=== PATIENT | female | born 1960 | race Caucasian/White ===

== ENCOUNTER 2017-01-08 21:46 | Inpatient (IN) | payer SELFPAY ==
[~2017-01-08 21:46] MED LIST: ISOVUE-370 76%-LOCM 1 ML ONE
--- NOTE | 2017-01-08 22:21 | RAD ---
CHEST 1 VIEW: Date: 01/08/17 HISTORY: Chest pain. COMPARISON: Chest 1 view dated 02/03/16. FINDINGS: New right infrahilar air space opacity is present. Left lung is relatively clear. IMPRESSION: New right infrahilar air space opacity suggests pneumonia. Follow-up recommended after treatment. POS: [facility]
[2017-01-08 22:40] LABS: #Basophils 0.1 thou/uL (0.0-0.2); #Lymphocytes 2.6 thou/uL (1.20-3.40); #Monocytes 0.9 thou/uL (0.11-0.59); #Neutrophils 15.4 thou/uL (1.40-6.50); %Basophils 0.7 % (0.0-1.0); %Eosinophils 0.1 % (0.0-10.0); %Lymphocytes 13.7 % (21.0-51.0); %Monocytes 4.5 % (0.0-10.0); Hematocrit 40.6 % (36.0-47.0); Mean Platelet Volume 6.4 fL (7.4-10.4); Red Blood Cell (RBC) Count 4.23 mill/uL (4.20-5.40)
[2017-01-08] MEDS ORDERED: HYDROmorphone 0.5 MG/0.5 ML SYRINGE ONE (22:45)
[2017-01-08 23:01] LABS: ALT (SGPT) 20 U/L (8-55); AST (SGOT) 23 U/L (5-34); Alkaline Phosphatase 130 U/L (40-150); Anion Gap 18 mmol/L (10-20); BUN (Urea Nitrogen) 10 mg/dL (9.8-20.1); Bilirubin, Total 0.6 mg/dL (0.2-1.2); CK (CPK) 102 U/L (29-168); Calc. Creatinine Clearance 0 mL/min (70-130); Calcium 9.6 mg/dL (7.8-10.44); Carbon Dioxide 20 mmol/L (22-29); Chloride 100 mmol/L (98-107); Estimated GFR-MDRD 78; Lipase 19 U/L (8-78); Protein, Total 8.2 g/dL (6.0-8.3)
[2017-01-08 23:05] LABS: Troponin I Less than 0.010 ng/mL (< 0.028)
[2017-01-08 23:17] LABS: Lactic Acid - Sepsis 2.3 mmol/L (0.5-2.2)
--- NOTE | 2017-01-08 23:22 | CT ---
CT ANGIOGRAM CHEST AND ABDOMEN WITH CONTRAST: Date: 01/08/17 HISTORY: Dissection. This is an aortic dissection protocol. COMPARISON: Chest radiograph from same date. FINDINGS: CT angiogram of the chest and abdomen performed after the intravenous administration of contrast. 3D rendering is provided. Thoracic aorta is normal. Ascending aorta is normal. Great vessels are normal. No aortic dissection. No aneurysmal dilatation. There is air space consolidation within the right middle lobe and right lower lobe which is multifoca l. This does abut the hemidiaphragm. Left lung is relatively clear. No pericardial effusion. Normal volume pericardial fluid. The superior mesenteric artery and celiac trunk are both patent. Liver is unremarkable, as well as spleen, adrenal glands, pancreas, and kidneys. Skeleton is unremarkable. IMPRESSION: 1. Multifocal right middle and lower lobe pneumonia. Follow up after treatment recommended. 2. No aortic dissection. POS: [facility]
[2017-01-08] MEDS ORDERED: methylPREDNISolone Sod Succ/PF 125 MG/2 ML VIAL ONE (23:54)
[2017-01-09] MEDS ORDERED: Lorazepam 2 MG/ML VIAL ONE (00:16)
[2017-01-09] MEDS ORDERED: Acetaminophen 500 MG TAB ONE (00:34)
--- NOTE | 2017-01-09 01:36 | PDOC.EVN ---
Event Note - Event Note Event Note: [id number] H&P Dictated 1. Pneumonia 2. Acute copd exacerbation 3. htn plan: see orders
[2017-01-09] MEDS ORDERED: Albuterol Sulfate 2.5 mg/3 ml Neb NEB PRN (01:46)
[2017-01-09 02:11] LABS: Bilirubin Negative (Negative); Blood, Urine Negative (Negative); Glucose, Urine (Dipstick) Negative (Negative); Ketone, Urine Negative (Negative); Nitrite Positive (Negative); Protein, Urine (Dipstick) Negative (Neg-Trace); Urobilinogen 0.2 mg/dL (0.2-1.0)
[2017-01-09 02:13] LABS: Bacteria/HPF 1+ HPF (None Seen); Hyaline Casts/LPF 0-3 HYALINE CAST LPF (0-3 Hyaline); Squamous Epithelial 0-3 HPF (0-3); WBC/HPF 0-3 HPF (0-3)
[2017-01-09 02:41] LABS: #Lymphocytes 1.3 thou/uL (1.20-3.40); #Monocytes 0.7 thou/uL (0.11-0.59); #Neutrophils 15.8 thou/uL (1.40-6.50); %Basophils 0.2 % (0.0-1.0); %Eosinophils 0.1 % (0.0-10.0); %Lymphocytes 7.2 % (21.0-51.0); %Monocytes 3.7 % (0.0-10.0); Hematocrit 34.2 % (36.0-47.0); Mean Platelet Volume 6.3 fL (7.4-10.4); Red Blood Cell (RBC) Count 3.61 mill/uL (4.20-5.40); White Blood Cell (WBC) Count 17.8 thou/uL (4.8-10.8)
[2017-01-09 03:01] LABS: Anion Gap 15 mmol/L (10-20); BUN (Urea Nitrogen) 9 mg/dL (9.8-20.1); Calc. Creatinine Clearance 0 mL/min (70-130); Calcium 8.2 mg/dL (7.8-10.44); Carbon Dioxide 16 mmol/L (22-29); Chloride 105 mmol/L (98-107); Estimated GFR-MDRD 78
[2017-01-09 03:12] LABS: Troponin I Less than 0.010 ng/mL (< 0.028)
[2017-01-09] MEDS ORDERED: Azithromycin 500 MG in Sodium Chloride 0.9% 250 ML 250 ML IVPB SCH ×2 (04:00→06:00)
[2017-01-09] MEDS ORDERED: Fentanyl 100 MCG/2 ML VIAL ONE (04:22)
[2017-01-09 07:21] VITALS: BMI 28.5
[2017-01-09 08:40] LABS: Lactic Acid - Sepsis 2.9 mmol/L (0.5-2.2)
--- NOTE | 2017-01-09 09:04 | HP ---
DATE OF ADMISSION: 01/09/2017 CHIEF COMPLAINT: Fever, chills, cough, sputum production. HISTORY OF PRESENT ILLNESS: Patient is a 56-year-old female with past medical history of COPD, hyper tension, hyperlipidemia who came to the ER complaining of cough and sputum production. Patient state s she had a cold 1 week back since then she is having cough, cough with sputum production, sputum is green in color, started having chest congestion. She started having fever and chills also, started h aving diffuse body aches. She came to the ER, complaints of dyspnea. Patient tried for relief but it did not help her. The patient complains of chest pain from the cough all over the chest, int ermittent, spasm kind. No aggravating and no alleviating factors. Worsens with cough. Denies nause a, denies vomiting. PAST MEDICAL HISTORY: As per HPI. PAST SURGICAL HISTORY: Hysterectomy, tubal ligation, knee surgery, . SOCIAL HISTORY: Positive for smoking, denies alcohol, denies drugs. FAMILY HISTORY: Positive for heart problems. REVIEW OF SYSTEMS: Constitutional: Denies any fever, denies any chill. Eyes: Denies any vision pr oblems. . Cardiovascular system: Positive for chest pain. Respiratory system: Positive for dyspnea. Positive for cough and sputum production. Gastrointestin al: Denies nausea, vomiting. Integumentary: Denies any rash. Musculoskeletal: Denies any joint d eformities. All other review of systems are reviewed and are negative. PHYSICAL EXAMINATION: CONSTITUTIONAL/VITAL SIGNS: At the time of H&P performed, pulse ox 99%, heart rate 110, blood pressu re 126/60. GENERAL: The patient appears tired. Anterior nares patent. HEENT: Nose normal. Ears normal. Teeth intact. Tongue is moist. NECK: Supple. No JVD. CARDIOVASCULAR SYSTEM: S1, S2 present. Tachycardia. No murmurs, no rubs, no gallops. RESPIRATORY SYSTEM: Positive for wheezing. Positive for rhonchi, diminished breath sounds bilateral ly. GASTROINTESTINAL: Abdomen is soft, nontender, no guarding, no organomegaly, no masses felt. MUSCULOSKELETAL: No edema. CRANIAL NERVE SYSTEM: Cranial nerves intact. Follows commands. Strength intact, Sensory intact. PSYCHIATRIC: Mood appropriate at this time. INTEGUMENT: No rashes seen. LABORATORY DATA: At the time of H&P performed, white count 19, hemoglobin 14.1, platelet count is 38 0. BMP showed sodium 134, potassium 3.6, chloride 100, CO2 of 20, BUN 10, creatinine 0.7. D-dimer [address] chest showed multifocal right middle and lower lobe pneumonia. ASSESSMENT AND PLAN: The patient is a 56-year-old female: 1. Right side pneumonia. Plan to start patient on IV antibiotics. Plan to monitor the patient clos vonda. Plan to check flu test. Plan to check Legionella, Streptococcus pneumonia, urinary antigen. W e will monitor patient closely. 2. Acute chronic obstructive pulmonary disease exacerbation. Plan to start patient on breathing chacho atments. Plan to start the patient on IV steroids and will monitor closely. 3. History of hypertension, monitor blood pressures. Continue BP meds. 4. History of hyperlipidemia. Continue statin. Case was discussed in detail with the patient.
[2017-01-09] MEDS: Aspirin 325 MG TAB PO SCH (09:06)
[2017-01-09] MEDS: Lisinopril 10 MG TAB PO SCH (09:07)
[2017-01-09] MEDS ORDERED: HYDROcodone/Acetaminophen 5/325 mg Tablet PO PRN (10:21)
[2017-01-09 10:27] LABS: Troponin I Less than 0.010 ng/mL (< 0.028)
[2017-01-09] MEDS: Potassium Chloride 20 MEQ TAB PO SCH ×3 (11:06→22:02)
[2017-01-09] MEDS: HYDROcodone/Acetaminophen 10/325 mg Tablet PO PRN ×2 (11:06→22:03)
[2017-01-09] MEDS: Guaifenesin DM 100-10/5 ML UDCUP PO PRN ×2 (12:30→22:03)
--- NOTE | 2017-01-09 12:58 | CON ---
DATE OF CONSULTATION: 01/09/2017 CONSULTING PHYSICIAN: Hospitalist group. REASON FOR CONSULTATION: COPD exacerbation. HISTORY OF PRESENT ILLNESS: This is a 56-year-old female who came to the hospital yesterday with one week history of increasing shortness of breath and sputum production. She is a 1 pack per day smoke r. She says she is trying to cut down. She does have a diagnosis of COPD from the past. She has been producing green sputum. She denies any hemoptysis. She has been having fever and chill s. PAST MEDICAL HISTORY: COPD, fibromyalgia, hypertension, and hyperlipidemia. PAST SURGICAL HISTORY: Hysterectomy, tubal ligation, knee surgery, section. SOCIAL HISTORY: Has been up to 3-pack per day smoker in the past and has smoked since age 16 and is now down to 1 pack per day. Does not consume alcohol. Denies illicit drugs. FAMILY MEDICAL HISTORY: Remarkable for coronary disease and COPD. MEDICATIONS: Prior to admission, trazodone, buspirone, Lyrica, Zestril and Abilify. She has also go t an albuterol/ipratropium nebulizer mix that she takes at home. REVIEW OF SYSTEMS: She has had fever and chills. She has had no nausea or vomiting. She has had no hemoptysis, no hematemesis, melena, hematochezia, hematuria, or dysuria. PHYSICAL EXAMINATION: VITAL SIGNS: Temperature is 99.4, pulse 82, respirations 16, O2 sat 93%, blood pressure 117/58. GENERAL: She is awake and alert and in no acute discomfort. She is tachypneic and is somewhat anxio us. HEENT: Unremarkable. NECK: No adenopathy, no JVD, no bruits. LUNGS: Poor air movement, but no audible wheezing or rhonchi. CARDIAC: S1, S2 regular, without murmur, rub or gallop. ABDOMEN: Soft, nontender, nondistended. EXTREMITIES: No clubbing, cyanosis, or edema. LABORATORY DATA: White blood cell count 17.8, hematocrit 34.2, platelet count 359. Sodium 133, pota ssium 3.1, chloride 105, CO2 16, BUN 9, creatinine 0.7, glucose 193. CT of the chest showed relative ly clear lung [place] except in the right lower lobe where there are some patchy infiltration. ASSESSMENT: 1. Right lower lobe pneumonia. 2. Chronic obstructive pulmonary disease with exacerbation. 3. Tobacco abuse. RECOMMENDATIONS: 1. I would continue treating her with Levaquin as you are doing. She is PENICILLIN allergic. There fore, PENICILLIN, CEPHALOSPORINS should probably be avoided. 2. Scheduled nebulization treatments 3. IV steroids. 4. Smoking cessation. 5. She is requesting some cough medicine, which I will write for her. Thank you for the consultation. I will be glad to follow with you.
--- NOTE | 2017-01-09 14:30 | PDOC.EVN ---
Event Note - Event Note Event Note: history reviewed, orders reviewed. Pt admitted for multilobar pneumonia, severe sepsis with elevated lactate. State don levoflox and azithro. History of PCN allergy - rash. Will add in cefepime for GNR coverage for HCAP, low risk of cross reaction. I think benefit outweighs risk.
[2017-01-09] MEDS: Cefepime 1 GM, Admixture Fee 1 EACH in Sterile Water 10 ML SLOW IVP SCH (16:20)
[2017-01-09] MEDS ORDERED: Cefepime 1 GM in Sodium Chloride 0.9% 100 ML IVPB SCH (21:00)
[2017-01-10] MEDS: HYDROcodone/Acetaminophen 10/325 mg Tablet PO PRN ×4 (02:41→20:30)
[2017-01-10] MEDS: Cefepime 1 GM, Admixture Fee 1 EACH in Sterile Water 10 ML SLOW IVP SCH ×2 (02:42→17:09)
[2017-01-10 04:52] LABS: #Lymphocytes 1.4 thou/uL (1.20-3.40); #Monocytes 0.9 thou/uL (0.11-0.59); #Neutrophils 16.3 thou/uL (1.40-6.50); %Basophils 0.1 % (0.0-1.0); %Eosinophils 0.1 % (0.0-10.0); %Lymphocytes 7.3 % (21.0-51.0); %Monocytes 4.6 % (0.0-10.0); Hematocrit 33.5 % (36.0-47.0); Mean Platelet Volume 6.7 fL (7.4-10.4); Red Blood Cell (RBC) Count 3.51 mill/uL (4.20-5.40); White Blood Cell (WBC) Count 18.5 thou/uL (4.8-10.8)
[2017-01-10 05:05] LABS: Anion Gap 13 mmol/L (10-20); BUN (Urea Nitrogen) 15 mg/dL (9.8-20.1); Calc. Creatinine Clearance 110 mL/min (70-130); Calcium 9.4 mg/dL (7.8-10.44); Carbon Dioxide 19 mmol/L (22-29); Chloride 110 mmol/L (98-107); Estimated GFR-MDRD 83
[2017-01-10] MEDS: Guaifenesin DM 100-10/5 ML UDCUP PO PRN (05:43)
[2017-01-10] MEDS: Aspirin 325 MG TAB PO SCH (07:48)
[2017-01-10] MEDS: Lisinopril 10 MG TAB PO SCH (07:49)
[2017-01-10] MEDS ORDERED: Nicotine 21 MG PATCH TD SCH (10:00)
--- NOTE | 2017-01-10 10:45 | PRG ---
DATE OF SERVICE: 01/10/2017 Apparently the patient is still going down to smoke despite being counseled not to. She is breathing better. PHYSICAL EXAMINATION: VITAL SIGNS: Temperature is 97.9, pulse 70, respirations 22, O2 sat 93, blood pressure 121/61. HEENT: Unremarkable. NECK: No JVD. CHEST: Mild expiratory wheezing. CARDIAC: S1 and S2 regular. ABDOMEN: Soft. EXTREMITIES: No edema. LABORATORY DATA: White blood cell count 18.5, hematocrit 33.5, platelet count 416. Sodium 130, pota ssium 4, chloride 110, CO2 19, BUN 15, creatinine 0.7, glucose 135. ASSESSMENT: 1. Tobacco abuse. 2. Chronic obstructive pulmonary disease with exacerbation. 3. Right lower lobe pneumonia. RECOMMENDATIONS: 1. I have told her not to smoke. I have told the nurse not to allow her to go down to smoke. 2. Continue nebulization treatments. 3. Decrease steroid dose and convert to oral medication. 4. Hopefully can go home by tomorrow.
[2017-01-10] MEDS ORDERED: Permethrin 5% Cream 60 GM TUBE TOP SCH (11:15)
[2017-01-10] MEDS: ALPRAZolam 0.25 MG TAB PO PRN ×2 (12:12→20:30)
[2017-01-10] MEDS: Nicotine 14 MG PATCH TD SCH (12:16)
--- NOTE | 2017-01-10 13:17 | PDOC.PN ---
- Subjective Encounter Start Date: 01/10/17 Encounter Start Time: 09:05 -: old records requested/rev Pt seen and examined, chart reviewed in its entirety. This is my first visit with this patient. notified by nursing that pt has gone down a few times for smoking. Met with the patient and told her i could not allow this as she is here and being treated for a respiratory problem, and that smoking and going down and breathing in the cold morning air is NOT helpful. She is very anxious. She then relayed a story where she beleive she is getting scabies from a neighbors house, and has been delaing with it for 2 years. She tells me her does not believe her. she believes she is infested due to small black particles in her bed, a lesion on the back of her head that she was able to squeeze out clear fluid last evening, and black stools. She claims to have had black stool for some time, occasional red blood, 8/10 BMs she has for some time. Her H/H has slowly dropped. she has not had a BM here since admit Breathing is better. She is asking to be treated for scabies and to have sometihng for anxiety. she said she was last treated for scabies about a week ago, and had to be hospitalized at [facility] (mental health facility) afte rhaving a breakdown form dealing with this No CP, no N/V, no D, no BM since admit. no hemoptysis. + WILSON, no orthopnea 10 point ROs performed and neg for all systems except as above - Objective Resuscitation Status: full MAR Reviewed: Yes Vital Signs & Weight: Vital Signs (12 hours) Temp Pulse Resp BP BP Pulse Ox 01/10/17 11:32 98.2 F 71 18 97/52 L 93 L 01/10/17 10:17 56 L 96 01/10/17 07:55 97.9 F 70 22 H 121/61 93 L 01/10/17 07:49 121/61 01/10/17 05:36 98.3 F 77 18 113/57 L 94 L 01/10/17 02:49 81 20 Weight Weight 176 lb 8 oz I&O: 01/09/17 01/10/17 01/11/17 06:59 06:59 06:59 Intake Total 720 Balance 720 Result Diagrams: 01/10/17 04:37 01/10/17 04:37 Radiology Reviewed by me: Yes EKG Reviewed by me: Yes Phys Exam - Physical Examination Constitutional: NAD anxious HEENT: PERRLA, moist MMs, sclera anicteric, oral pharynx no lesions Neck: no nodes, no JVD, supple, full ROM Respiratory: no wheezing, no rales, no rhonchi, clear to auscultation bilateral Cardiovascular: RRR, no significant murmur, no rub Gastrointestinal: soft, non-tender, no distention, positive bowel sounds Musculoskeletal: no edema, pulses present Neurological: non-focal, normal sensation, moves all 4 limbs Lymphatic: no nodes Deviation from normal: anxious, O x 3 Skin: no rash, normal turgor, cap refill <2 seconds Deviation from normal: no signs of scabies burrows in her intertriginous areas. small -: black particles look like dirt. Dx/Plan (1) Chronic obstructive lung disease Status: Acute Qualifiers: COPD type: COPD with acute exacerbation Qualified Code(s): J44.1 - Chronic obstructive pulmonary disease with (acute) exacerbation (2) Hypertension Code(s): I10 - ESSENTIAL (PRIMARY) HYPERTENSION Status: Chronic Qualifiers: Hypertension type: essential hypertension Qualified Code(s): I10 - Essential (primary) hypertension (3) Tobacco abuse Code(s): Z72.0 - TOBACCO USE Status: Chronic Comment: states shes only smoking 1/2 ppd now. says none in three days, but had been down twice today. 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
[2017-01-10] MEDS ORDERED: Bisacodyl 10 MG SUPP PR SCH (14:00)
[2017-01-10 15:17] LABS: Hematocrit 31.5 % (36.0-47.0)
[2017-01-10] MEDS: predniSONE 20 MG TAB PO SCH (20:29)
[2017-01-10] MEDS: Docusate 100 MG CAP PO SCH (20:30)
[2017-01-11] MEDS: HYDROcodone/Acetaminophen 10/325 mg Tablet PO PRN ×3 (01:35→14:23)
[2017-01-11] MEDS: Cefepime 1 GM, Admixture Fee 1 EACH in Sterile Water 10 ML SLOW IVP SCH ×2 (03:39→14:25)
[2017-01-11 04:50] LABS: #Basophils 0.2 thou/uL (0.0-0.2); #Lymphocytes 1.3 thou/uL (1.20-3.40); #Monocytes 0.9 thou/uL (0.11-0.59); %Basophils 1.3 % (0.0-1.0); %Eosinophils 0.1 % (0.0-10.0); %Lymphocytes 10.3 % (21.0-51.0); %Monocytes 7.2 % (0.0-10.0); Hematocrit 30.8 % (36.0-47.0); Mean Platelet Volume 6.7 fL (7.4-10.4); Red Blood Cell (RBC) Count 3.18 mill/uL (4.20-5.40); White Blood Cell (WBC) Count 12.3 thou/uL (4.8-10.8)
[2017-01-11 05:09] LABS: Anion Gap 13 mmol/L (10-20); BUN (Urea Nitrogen) 15 mg/dL (9.8-20.1); Calc. Creatinine Clearance 116 mL/min (70-130); Carbon Dioxide 18 mmol/L (22-29); Chloride 110 mmol/L (98-107); Estimated GFR-MDRD 88
[2017-01-11 08:11] VITALS: BP 118/72; TEMP 97.6
--- NOTE | 2017-01-11 08:41 | PRG ---
DATE OF SERVICE: 01/11/2017 SUBJECTIVE: The patient feels better. She wants to go home. OBJECTIVE: VITAL SIGNS: Temperature 97.6, pulse 70, respirations 18, O2 sat 95%, blood pressure 118/72. HEENT: Unremarkable. NECK: No JVD. CHEST: Fairly clear without wheezing. CARDIAC: S1 and S2 regular. ABDOMEN: Soft. EXTREMITIES: No edema. LABORATORY DATA: Sodium 137, potassium 4.4, chloride 110, CO2 18, BUN 15, creatinine 0.7, glucose 12 7. White blood cell count 12.3, hematocrit 30, platelet count 424. ASSESSMENT: Chronic obstructive pulmonary disease with exacerbation. RECOMMENDATIONS: The patient can probably go home. She needs to finish up a course of antibiotics a nd be tapered off her steroids over 2 weeks. Smoking cessation has been advised. I doubt she will c omply.
[2017-01-11] MEDS: predniSONE 20 MG TAB PO SCH (08:49)
[2017-01-11] MEDS: Lisinopril 10 MG TAB PO SCH (08:50)
[2017-01-11] MEDS: Docusate 100 MG CAP PO SCH (08:50)
[2017-01-11] MEDS: Aspirin 325 MG TAB PO SCH (08:51)
[2017-01-11] MEDS ORDERED: Mag-Al 1200 mg/1200 mg/30 ML UDCUP PO PRN (10:31)
[2017-01-11] MEDS ORDERED: Artificial Tears 18 DROP/0.9 ML EA EYE PRN (10:31)
[2017-01-11] MEDS ORDERED: Ondansetron ODT 4 MG TAB PO PRN (10:31)
[2017-01-11] MEDS ORDERED: Milk Of Magnesia 30 ML UDCUP PO PRN (10:31)
[2017-01-11] MEDS ORDERED: Loperamide HCl 2 MG CAP PO PRN (10:31)
[2017-01-11] MEDS ORDERED: Ondansetron HCl/PF 4 MG/2 ML Vial IVP PRN (10:31)
[2017-01-11] MEDS ORDERED: Chloraseptic Spray 180 ml Bottle PO PRN (10:31)
[2017-01-11] MEDS ORDERED: Temazepam 15 MG CAP PO PRN (10:31)
[2017-01-11] MEDS ORDERED: Acetaminophen 325 MG TAB PO PRN (10:31)
[2017-01-11] MEDS ORDERED: Sodium Chloride 0.65% Nasal 44 ML BOT EA NARE PRN (10:31)
[2017-01-11] MEDS ORDERED: Eucerin (Mineral Oil/Petrolatum,White) 30 gm Jar TOP PRN (10:31)
[2017-01-11] MEDS ORDERED: Benzonatate 100 MG CAP PO PRN (10:31)
[2017-01-11] MEDS ORDERED: hydrALAZINE 20 MG/ML VIAL SLOW IVP PRN (10:31)
[2017-01-11] MEDS ORDERED: Diabetic Tussin 200 MG/10 ML UDCUP PO PRN (10:31)
[2017-01-11] MEDS ORDERED: Loratadine 10 MG TAB PO PRN (10:31)
--- NOTE | 2017-01-11 12:47 | PDOC.PN ---
- Subjective Encounter Start Date: 01/11/17 Encounter Start Time: 10:35 -: old records requested/rev Patient seen and examined. No new complaints. No overnight events - Objective MAR Reviewed: Yes Vital Signs & Weight: Vital Signs (12 hours) Temp Pulse Resp BP BP Pulse Ox 01/11/17 10:44 80 16 01/11/17 08:50 118/72 01/11/17 08:00 97.6 F 80 16 118/72 95 01/11/17 06:31 79 16 01/11/17 03:49 97.9 F 75 20 107/61 95 01/11/17 01:19 68 16 97 Weight Weight 176 lb 8 oz I&O: 01/10/17 01/11/17 01/12/17 06:59 06:59 06:59 Intake Total 720 1920 Balance 720 1920 Result Diagrams: 01/11/17 04:13 01/11/17 04:13 Phys Exam - Physical Examination Constitutional: NAD HEENT: PERRLA, moist MMs, sclera anicteric Neck: no JVD, supple Respiratory: no wheezing, no rales, no rhonchi Cardiovascular: RRR, no significant murmur, no rub Gastrointestinal: soft, non-tender, no distention, positive bowel sounds Musculoskeletal: no edema, pulses present Neurological: non-focal, normal sensation, moves all 4 limbs Psychiatric: normal affect, A&O x 3 Skin: no rash, normal turgor Dx/Plan (1) COPD exacerbation Code(s): J44.1 - CHRONIC OBSTRUCTIVE PULMONARY DISEASE W (ACUTE) EXACERBATION Status: Acute (2) Community acquired bacterial pneumonia Code(s): J15.9 - UNSPECIFIED BACTERIAL PNEUMONIA Status: Acute (3) Anxiety Code(s): F41.9 - ANXIETY DISORDER, UNSPECIFIED Status: Chronic (4) Hypertension Code(s): I10 - ESSENTIAL (PRIMARY) HYPERTENSION Status: Chronic Qualifiers: Hypertension type: essential hypertension Qualified Code(s): I10 - Essential (primary) hypertension (5) Tobacco abuse Code(s): Z72.0 - TOBACCO USE Status: Chronic Comment: - Plan cont current plan of care, continue antibiotics, respiratory therapy * medication reviewed as below * symptomatic treatment * stable for discharge * see discharge summery. Review of Systems - Review of Systems Constitutional: negative: Fever, Chills, Sweats, Weakness, Malaise, Other Eyes: negative: Pain, Vision Change, Conjunctivae Inflammation, Eyelid Inflammation, Redness, Other ENT: negative: Ear Pain, Ear Discharge, Nose Pain, Nose Discharge, Nose Congestion, Mouth Pain, Mouth Swelling, Throat Pain, Throat Swelling, Other Respiratory: Cough. negative: Dry, Shortness of Breath, Hemoptysis, SOB with Excertion, Pleuritic Pain, Sputum, Wheezing Cardiovascular: negative: Chest Pain, Palpitations, Orthopnea, Paroxysmal Noc. Dyspnea, Edema, Light Headedness, Other Gastrointestinal: negative: Nausea, Vomiting, Abdominal Pain, Diarrhea, Constipation, Melena, Hematochezia, Other Genitourinary: negative: Dysuria, Frequency, Incontinence, Hematuria, Retention , Other Musculoskeletal: negative: Neck Pain, Shoulder Pain, Arm Pain, Back Pain, Hand Pain, Leg Pain, Foot Pain, Other Skin: negative: Rash, Lesions, [place], Bruising, Other - Medications/Allergies Allergies/Adverse Reactions: Allergies Allergy/AdvReac Type Severity Reaction Status Date / Time Penicillins Allergy Verified 12/03/12 13:17 Medications: Current Medications Acetaminophen (Tylenol) 650 mg PO Q4H PRN PRN Reason: Headache/Fever or Mild Pain Hydrocodone Bitart/Acetaminophen ([place] 10/325) 1 tab PO Q4H PRN PRN Reason: Severe Pain (7-10) Last Admin: 01/11/17 08:51 Dose: 1 tab Hydrocodone Bitart/Acetaminophen ([place] 5/325) 1 tab PO Q4H PRN PRN Reason: Moderate Pain (4-6) Last Admin: 01/09/17 16:19 Dose: 1 tab Al Hydroxide/Mg Hydroxide (Maalox) 15 ml PO Q4H PRN PRN Reason: Heartburn or Indigestion Albuterol Sulfate (Ventolin) 2.5 mg NEB Q2H PRN PRN Reason: SOB &/or Wheezing Albuterol/Ipratropium (Duoneb) 3 ml EZPAP [id number] [place] Last Admin: 01/11/17 10:44 Dose: 3 ml Alprazolam (Xanax) 0.25 mg PO QIDPRN PRN PRN Reason: Anxiety Last Admin: 01/10/17 20:30 Dose: 0.25 mg Artificial Tears (Tears Naturale) 0 drop EA EYE PRN PRN PRN Reason: Dry Eyes Aspirin (Aspirin) 325 mg PO QAM-WM [facility] Last Admin: 01/11/17 08:51 Dose: 325 mg Benzonatate (Tessalon) 100 mg PO Q4H PRN PRN Reason: Cough Docusate Sodium (Colace) 100 mg PO BID [facility] Last Admin: 01/11/17 08:50 Dose: 100 mg Famotidine (Pepcid) 20 mg PO BID [facility] Guaifenesin (Robitussin Sf) 200 mg PO Q4H PRN PRN Reason: Cough Guaifenesin/Dextromethorphan (Robitussin Dm) 10 ml PO Q6H PRN PRN Reason: Cough Last Admin: 01/10/17 05:43 Dose: 10 ml Hydralazine HCl (Apresoline) 10 mg SLOW IVP Q4H PRN PRN Reason: Systolic BP > 180 Levofloxacin 750 mg/ Device 150 mls @ 100 mls/hr IVPB Q24HR [facility] Last Admin: 01/10/17 23:59 Dose: 150 mls Cefepime HCl 1 gm/Miscellaneous Medication 1 each/ Sterile Water 10 mls @ 120 mls/hr SLOW IVP 0300,1500 [facility] Last Admin: 01/11/17 03:39 Dose: 10 mls Lisinopril (Zestril) 10 mg PO DAILY [facility] Last Admin: 01/11/17 08:50 Dose: 10 mg Loperamide HCl (Imodium) 2 mg PO PRN PRN PRN Reason: Diarrhea/Loose Stools Loratadine (Claritin) 10 mg PO DAILYPRN PRN PRN Reason: Sinus Symptoms Magnesium Hydroxide (Milk Of Magnesium) 30 ml PO DAILYPRN PRN PRN Reason: Constipation Mineral Oil/White Petrolatum (Eucerin Cream) 0 gm TOP BIDPRN PRN PRN Reason: Dry Skin Nicotine (Nicoderm Patch) 14 mg TD 1200 [facility] Last Admin: 01/10/17 12:16 Dose: 14 mg Ondansetron HCl (Zofran Odt) 4 mg PO Q6H PRN PRN Reason: Nausea/Vomiting Ondansetron HCl (Zofran) 4 mg IVP Q6H PRN PRN Reason: Nausea/Vomiting Pantoprazole Sodium (Protonix) 40 mg PO BID [facility] Last Admin: 01/11/17 08:51 Dose: 40 mg Phenol (Chloraseptic [place] 180 Ml Bot) 0 ml PO PRN PRN PRN Reason: Sore Throat Prednisone (Prednisone) 30 mg PO BID [facility] Last Admin: 01/11/17 08:49 Dose: 30 mg Sodium Chloride (Flush - Normal Saline) 10 ml IVF Q12HR [facility] Last Admin: 01/11/17 09:02 Dose: 10 ml Sodium Chloride (Flush - Normal Saline) 10 ml IVF PRN PRN PRN Reason: Saline Flush Last Admin: 01/11/17 03:39 Dose: 10 ml Sodium Chloride ([place] Nasal [place] 0.65%) 0 ml EA NARE QIDPRN PRN PRN Reason: Nasal Congestion Temazepam (Restoril) 15 mg PO HSPRN PRN PRN Reason: Insomnia
[2017-01-11] MEDS: ALPRAZolam 0.25 MG TAB PO PRN (14:23)
[2017-01-11] MEDS: Nicotine 14 MG PATCH TD SCH (14:27)
--- NOTE | 2017-01-11 14:32 | DIS ---
DATE OF ADMISSION: 01/09/2017 DATE OF DISCHARGE: 01/11/2017 PRIMARY CARE PHYSICIAN: [facility]. DISCHARGE DISPOSITION: Home. PRIMARY DISCHARGE DIAGNOSES: Community-acquired bacterial pneumonia and chronic obstructive pulmonar y disease exacerbation. SECONDARY DISCHARGE DIAGNOSES: Ongoing tobacco abuse, hypertension, anxiety disorder, and hypertensi on. PRIMARY PROCEDURE/OPERATION: None. RADIOLOGICAL INVESTIGATION: CT dissection protocol was done in the emergency room, which showed no e vidence of dissection, but showed multifocal right middle and lower lobe pneumonia. Chest x-ray also showed hilar infiltration. SIGNIFICANT LABORATORY DATA: Hemoglobin 10.4, WBC 12.3, platelets 424. D-dimer 0.71, sodium 137, po tassium 4.4, BUN 15, creatinine 0.69, calcium 9.0, lactic acid 3.0. LFTs normal. Cardiac enzymes ne gative. TSH 1.30. Urinalysis; nitrite positive, blood culture negative. Influenza A and B negative . Respiratory culture negative. Stool for guaiac negative. DISCHARGE MEDICATIONS: Tylenol No. 3 one or two tablets q.6 hourly p.r.n., Ventolin HFA 2 puffs q.6 hourly p.r.n., Xanax 0.25 mg p.o. b.i.d. p.r.n., Tessalon 100 mg p.o. t.i.d. p.r.n., BuSpar 5 mg p.o. b.i.d., Abilify 2 mg tablet daily, Mucinex 600 mg twice daily, lisinopril 10 mg p.o. daily, Dulera 2 puffs inhalation b.i.d., nicotine patch 21 mcg daily for 7 days, then 14 mg daily for 7 days and the n 7 mg daily for 7 days, then stop, prednisone 30 mg p.o. b.i.d. for 5 days, then 20 mg p.o. b.i.d. f or 5 days, then 10 mg p.o. b.i.d. for 5 days, then 5 mg p.o. b.i.d. for 5 days, Lyrica 50 mg p.o. b.i .d., trazodone 50 mg p.o. at bedtime p.r.n. CONTRAINDICATIONS: None. CODE STATUS: FULL CODE. INPATIENT FURNITURE SALES CONSULTANT: Dr. Ford was following while in the hospital. ALLERGIES: PENICILLIN. TEST RESULTS PENDING ON DISCHARGE: None. DISCHARGE PLAN: Post hospital, patient is advised to follow with [facility] as well as prima care physician. The patient is also advised to make appointment with Dr. Ford. HOSPITAL COURSE: A 56-year-old female with above-mentioned medical problem who was admitted by Dr. Tex klein, please see his H&P for further details. The patient presented to emergency room with fever, chills, cough, and sputum production. She was having increasing shortness of breath. Initially in the emergency room, patient had dissection protocol CT scan because of elevated D-dimer and that was negative for dissection and pulmonary embolism, but patient was found with right middle and lower lobe infiltration. Chest x-ray also showed hilar infiltration. She had lactic acidosis an d leukocytosis. The patient was meeting sepsis criteria. We admitted to telemetry floor. Patient w as given broad spectrum antibiotic therapy with cefepime and Levaquin. Pulmonary was also consulted while in hospital. The patient was also treated for COPD flareup with IV antibiotic therapy and resp iratory therapy as well as steroid therapy. The patient's condition significantly improved and at th at point, the patient was transferred to medical floor. Today, patient wanted to go home. She is on room air. She is talking in full sentences. Her leukocytosis is also improving. She has cough, bu t no wheezing. She is ambulatory and tolerating p.o. well, she is afebrile. She does not have any U TI symptoms at this point. All new medication prescriptions given and sent to her pharmacy. The patient is seen and examined at bedside today. Please see my progress note from today for further details. Old chart reviewed kervin kincaid Total time spent on discharge day 31 minutes.
[2017-01-11] MEDS ORDERED: Famotidine 20 MG TAB PO SCH (21:00)
== END 2017-01-11 15:44 | disposition home or self-care (01) | DRG 871 ==
LOC: ERS 21:46 → ERHOLD 01-09 00:41 → 2SW 01-09 04:42 → T4-B 01-10 19:00
PROVIDERS: ADMIT Internal Medicine; ATTEND Internal Medicine
DX: A41.9 Sepsis, unspecified organism (principal); J15.9 Unspecified bacterial pneumonia; E87.2 Acidosis; J44.0 Chronic obstructive pulmonary disease with (acute) lower respiratory infection; J44.1 Chronic obstructive pulmonary disease with (acute) exacerbation; R65.20 Severe sepsis without septic shock; I10 Essential (primary) hypertension; E78.5 Hyperlipidemia, unspecified; F17.210 Nicotine dependence, cigarettes, uncomplicated; F41.9 Anxiety disorder, unspecified; M79.7 Fibromyalgia; F22 Delusional disorders
CPT/HCPCS: 36415; 71010; 71275; 80048; 80053; 81003; 81015; 82274; 82553; 83605; 83690; 83735; 84443; 84484; 85025; 85379; 86850; 86900; 86901; 87040; 87070; 87205; 93005; 94640; 96361; 96365; 96366; 96375; A4216; J0456; J0692; J1170; J1956; J2060; J2920; J2930; J3010; J3370; J7050; J7506; J7611; J7620

== ENCOUNTER 2017-09-12 14:04 | Emergency (ER) | payer SELFPAY ==
[2017-09-12] MEDS ORDERED: ISOVUE-370 76%-LOCM 1 ML ONE (14:54)
[2017-09-12] MEDS ORDERED: HYDROcodone/Acetaminophen 10/325 mg Tablet ONE (15:59)
--- NOTE | 2017-09-12 16:28 | RAD ---
LEFT FOOT 3 VIEWS: Date: 09/12/17 HISTORY: Evaluate for foreign body. COMPARISON: None. FINDINGS: There is a fracture of the distal phalanx small toe. There is also fracture of the distal phalanx of the great toe lateral margin. No radiopaque foreign object is appreciated. IMPRESSION: Fracture of the distal phalanx of the small toe, as well as intra-articular fracture of the distal ph alanx great toe at the interphalangeal joint. POS: ANTHONY
[2017-09-12 17:20] LABS: Hemoglobin 14.2 g/dL (12.0-16.0); Mean Corpuscular HGB CONC 35.4 g/dL (32.0-36.0); Mean Corpuscular Hemoglobin 32.9 pg (27.0-31.0); Platelet Count 456 thou/uL (130-400); RBC Distribution Width 11.9 % (11.5-14.5)
[2017-09-12 17:40] LABS: Eosinophils 1 % (0-10); Lymphocytes 69 % (21-51); MDiff Complete? YES; Monocytes 5 % (0-10); Neutrophil 23 % (42-75); PLT Morphology Comment Appears Increased; Reactive Lymphocytes 2 % (0-10)
[2017-09-12 17:41] LABS: ALT (SGPT) 15 U/L (8-55); AST (SGOT) 16 U/L (5-34); Albumin 3.8 g/dL (3.5-5.0); Alkaline Phosphatase 131 U/L (40-150); Anion Gap 12 mmol/L (10-20); BUN (Urea Nitrogen) 10 mg/dL (9.8-20.1); Bilirubin, Total 0.3 mg/dL (0.2-1.2); Calc. Creatinine Clearance 0 mL/min (70-130); Calcium 9.5 mg/dL (7.8-10.44); Carbon Dioxide 25 mmol/L (22-29); Chloride 105 mmol/L (98-107); Estimated GFR-MDRD 87; Globulin 3.1 g/dL (2.4-3.5); Glucose 92 mg/dL (70-105); Protein, Total 6.9 g/dL (6.0-8.3); Sodium 138 mmol/L (136-145)
[2017-09-12] MEDS ORDERED: Adacel (T-DAP) 0.5 ML VIAL ONE (18:30)
[2017-09-12] MEDS ORDERED: ALPRAZolam 0.5 MG TAB ONE (18:31)
--- NOTE | 2017-09-12 18:36 | CT ---
CT LEFT LOWER EXTREMITY WITH CONTRAST: 09/12/17 HISTORY: Evaluate for abscess. Laceration. Comparison radiograph same day. FINDINGS: There is a laceration of the plantar medial aspect of the foot. There appears to be a subtle peripher ally enhancing fluid collection seen to the skin surface to the level of the great toe metatarsophala ngeal joint. This measures up to 1 cm in size. This is just deep to the flexor hallucis longus tendon . The flexor hallucis longus tendon appears to be intact and not severed. There is a nondisplaced fracture of the lateral margin of the great toe distal phalanx base intra-art icular. There is also mildly comminuted fracture of the small toe distal phalanx base. Some dorsal osteophytes most likely a fracture of the navicular at the talonavicular joint. There marilee ears to be an enthesophyte along the plantar aspect of the great toe metatarsal base. IMPRESSION: 1. Soft tissue laceration along the plantar medial foot with a 1 cm peripheral enhancing collect ion just deep to the metatarsophalangeal joint of the great toe deep to the flexor hallucis longus te ndon. This is concerning for a developing abscess versus phlegmonous changes. This is likely to devel op in a full fledged abscess at some point. 2. Fracture of the great toe distal phalanx base, intra-articular, as well as along the comminut ed fracture of the distal phalanx of the small toe. POS: HOME
[2017-09-12] MEDS ORDERED: Clindamycin/D5W 600 mg/50 ml Premix Bag ONE (18:55)
[2017-09-12] MEDS ORDERED: Morphine 4 MG/ML VIAL ONE (19:35)
[2017-09-12] MEDS ORDERED: Bacitracin Zinc 1 Packet ONE (20:06)
== END 2017-09-12 20:27 | disposition home or self-care (01) ==
LOC: ERS 14:04
DX: S91.312A Laceration without foreign body, left foot, initial encounter (principal); Z71.6 Tobacco abuse counseling; E78.5 Hyperlipidemia, unspecified; I10 Essential (primary) hypertension; J44.9 Chronic obstructive pulmonary disease, unspecified; F41.9 Anxiety disorder, unspecified; F32.9 Major depressive disorder, single episode, unspecified; F17.210 Nicotine dependence, cigarettes, uncomplicated; Z79.899 Other long term (current) drug therapy; Z79.82 Long term (current) use of aspirin; W19.XXXA Unspecified fall, initial encounter
CPT/HCPCS: 36415; 80053; 83605; 85025; 87040; 90471; 90715; 96365; 96375; 99406; J2270; J3490